=== PATIENT | male | born 1970 | race Caucasian/White ===

== ENCOUNTER 2016-07-14 12:35 | Emergency (ER) | payer MEDICARE, MEDICAID ==
[2016-07-14] MEDS ORDERED: ONDANSETRON 4 MG TAB.RAPDIS PO ONE (12:55)
[2016-07-14] MEDS ORDERED: ASPIRIN 81 MG TABLET, CHEWABLE PO ONE (12:55)
--- NOTE | 2016-07-14 12:58 | ER Document Report ---
ED Medical Screen (RME) - General Stated Complaint: CHEST PAIN,NAUSEA Mode of Arrival: Ambulatory Information source: Patient Notes: Patient presents complaining of chest pain that started an hour and a half ago. Patient reports nausea and vomiting for the past 2 days. Pain is midsternal. No shortness of breath. hx: merna fundoplication, A. fib, cardiac Catheterization I have greeted and performed a rapid initial assessment of this patient. A comprehensive ED assessment and evaluation of the patient, analysis of test results and completion of the medical decision making process will be conducted by additional ED providers. - Related Data Allergies/Adverse Reactions: ketorolac tromethamine [From Toradol] Allergy (Verified 07/14/16 12:54) meperidine HCl [From Demerol] Allergy (Verified 07/14/16 12:54) metoclopramide HCl [From Reglan] Allergy (Verified 07/14/16 12:54) morphine [Morphine] Allergy (Verified 07/14/16 12:54) prochlorperazine edisylate [From Compazine] Allergy (Verified 07/14/16 12:54) promethazine HCl [From Phenergan] Allergy (Verified 07/14/16 12:54) rosuvastatin calcium [From Crestor] Adverse Reaction (Unknown, Verified 12:54) elevated lft's Past Medical History - Past Medical History Cardiac Medical History: Reports: Hx Atrial Fibrillation, Hx Hypercholesterolemia, Hx Hypertension Pulmonary Medical History: Denies: Hx Tuberculosis GI Medical History: Reports: Hx Gastroesophageal Reflux Disease Psychiatric Medical History: Reports: Hx Anxiety, Hx Bipolar Disorder, Hx Depression Past Surgical History: Reports: Hx Cardiac Catheterization - x3, all have been normal, Hx Oral Surgery, Hx Testicular Surgery - L testicle removal r/t varicose veins/tumor, Hx Tonsillectomy - Immunizations Hx Diphtheria, Pertussis, Tetanus Vaccination: No Physical Exam - Vital signs Vitals: Temp Pulse Resp BP Pulse Ox 98.3 F 88 18 139/90 H 96 07/14/16 12:50 07/14/16 12:50 07/14/16 12:50 07/14/16 12:50 07/14/16 12:50 - Cardiovascular Rhythm: Regular Heart sounds: S1 appreciated, S2 appreciated Murmur: No Course - Vital Signs Vital signs: Temp Pulse Resp BP Pulse Ox 98.3 F 88 18 139/90 H 96 07/14/16 12:50 07/14/16 12:50 07/14/16 12:50 07/14/16 12:50 07/14/16 12:50
[2016-07-14 13:39] LABS: APPEARANCE,URINE CLEAR; BILIRUBIN,URINE NEGATIVE (NEGATIVE); GLUCOSE, URINE NEGATIVE (NEGATIVE); KETONES,URINE TRACE mg/dL (NEGATIVE); LEUKOCYTE ESTERASE,URINE NEGATIVE (NEGATIVE); NITRITE,URINE NEGATIVE (NEGATIVE); PROTEIN,URINE NEGATIVE (NEGATIVE); URINE SPECIFIC GRAVITY 1.023; UROBILINOGEN,URINE NEGATIVE mg/dL (<2.0)
[2016-07-14 13:41] LABS: ABSOLUTE BASOPHILS # (AUTO) 0.1 10^3/uL (0.0-0.2); ABSOLUTE EOSINOPHILS # (AUTO) 0.1 10^3/uL (0.0-0.6); ABSOLUTE LYMPHOCYTES (AUTO) 2.3 10^3/uL (0.5-4.7); ABSOLUTE NEUT (AUTO) 8.9 10^3/uL (1.7-8.2); BASOPHILS % (AUTO) 0.7 % (0-2); EOSINOPHILS % (AUTO) 0.8 % (0-6); HEMATOCRIT 45.4 % (37.9-51.0); HEMOGLOBIN 15.1 g/dL (13.5-17.0); HGB HCT DIFFERENCE -0.1; LYMPHOCYTES % (AUTO) 18.6 % (13-45); MEAN CORPUSCULAR HEMOGLOBIN 28.4 pg (27.0-33.4); MEAN CORPUSCULAR HGB CONC 33.2 g/dL (32.0-36.0); MEAN CORPUSCULAR VOLUME 86 fl (80-97); MONOCYTES % (AUTO) 7.7 % (3-13); RED BLOOD COUNT 5.32 10^6/uL (4.35-5.55); RED CELL DISTRIBUTION WIDTH 14.7 % (11.5-14.0); SEGMENTED NEUTROPHILS % (AUTO) 72.2 % (42-78); WHITE BLOOD COUNT 12.4 10^3/uL (4.0-10.5)
[2016-07-14 13:55] LABS: ALANINE AMINOTRANSFERASE 86 U/L (21-72); ALBUMIN 4.4 g/dL (3.5-5.0); ALKALINE PHOSPHATASE 41 U/L (38-126); ANION GAP 13 (5-19); ASPARTATE AMINO TRANSFERASE 40 U/L (17-59); BILIRUBIN,TOTAL 0.7 mg/dL (0.2-1.3); BLOOD UREA NITROGEN 14 mg/dL (7-20); CALCIUM 10.1 mg/dL (8.4-10.2); CARBON DIOXIDE 24 mmol/L (22-30); CHLORIDE 102 mmol/L (98-107); CREATINE KINASE 415 U/L (55-170); CREATININE RESULT 1.03 mg/dL (0.52-1.25); GLUCOSE 102 mg/dL (75-110); LIPASE 107.5 U/L (23-300); POTASSIUM 4.2 mmol/L (3.6-5.0); SODIUM 139.1 mmol/L (137-145); TOTAL PROTEIN 7.8 g/dL (6.3-8.2)
[2016-07-14 13:55] LABS: URINE BARBITURATES SCREEN NEGATIVE; URINE METHADONE SCREEN NEGATIVE; URINE OPIATES LOW NEGATIVE; URINE PHENCYCLIDINE SCREEN NEGATIVE
[2016-07-14 14:10] LABS: TROPONIN I < 0.012 ng/mL
[2016-07-14] MEDS ORDERED: ONDANSETRON HCL INJ/PF 4 MG/2 ML SDV IV ONE (15:56)
--- NOTE | 2016-07-14 15:59 | ER Document Report ---
ED General - General Chief Complaint: Chest Pain > 30 Stated Complaint: CHEST PAIN,NAUSEA Mode of Arrival: Ambulatory Information source: Patient Notes: 45-year-old male history of Carrillo eugenio who states that he has had 4 previous cardiac catheterizations which were all negative last 8 years ago presents with complaints of his heart racing. Patient notes that he's been vomiting for the past 2 days has not been able to hold on his Cardizem, her rate was noted to be 130s, he states that he took his Cardizem which brought his heart rate down to the 80s. Patient denies any current chest pain shortness breath difficult to breathing. He does note pain in the epigastric abdominal region. He does note that he has a history of esophageal erosion, and has not been taking his Nexium. Patient denies any blood in his vomit or stool TRAVEL OUTSIDE OF THE [place] IN LAST 30 DAYS: No - HPI Onset: Other - 2 day duration Onset/Duration: Persistent Quality of pain: Burning Severity: Mild Pain Level: 1 Associated symptoms: Nausea, Vomiting Exacerbated by: Denies Relieved by: Denies Similar symptoms previously: Yes Recently seen / treated by doctor: Yes - Related Data Allergies/Adverse Reactions: ketorolac tromethamine [From Toradol] Allergy (Verified 07/14/16 12:54) meperidine HCl [From Demerol] Allergy (Verified 07/14/16 12:54) metoclopramide HCl [From Reglan] Allergy (Verified 07/14/16 12:54) morphine [Morphine] Allergy (Verified 07/14/16 12:54) prochlorperazine edisylate [From Compazine] Allergy (Verified 07/14/16 12:54) promethazine HCl [From Phenergan] Allergy (Verified 07/14/16 12:54) rosuvastatin calcium [From Crestor] Adverse Reaction (Unknown, Verified 12:54) elevated lft's Past Medical History - General Information source: Patient - Social History Smoking Status: Never Smoker Cigarette use (# per day): No Chew tobacco use (# tins/day): No Smoking Education Provided: No Frequency of alcohol use: None Drug Abuse: None Family History: Reviewed & Not Pertinent Patient has suicidal ideation: No Patient has homicidal ideation: No - Past Medical History Cardiac Medical History: Reports: Hx Atrial Fibrillation, Hx Hypercholesterolemia, Hx Hypertension Pulmonary Medical History: Denies: Hx Tuberculosis Renal/ Medical History: Denies: Hx Peritoneal Dialysis GI Medical History: Reports: Hx Gastroesophageal Reflux Disease Psychiatric Medical History: Reports: Hx Anxiety, Hx Bipolar Disorder, Hx Depression Past Surgical History: Reports: Hx Cardiac Catheterization - x3, all have been normal, Hx Oral Surgery, Hx Testicular Surgery - L testicle removal r/t varicose veins/tumor, Hx Tonsillectomy - Immunizations Hx Diphtheria, Pertussis, Tetanus Vaccination: No Hx Pneumococcal Vaccination: 05/24/10 Review of Systems - Review of Systems Notes: REVIEW OF SYSTEMS: CONSTITUTIONAL : Denies fever, chills, or sweats. Denies recent illness. EENT: Denies eye, ear, throat, or mouth pain or symptoms. Denies nasal or sinus congestion or discharge. Denies throat, tongue, or mouth swelling or difficulty swallowing. CARDIOVASCULAR: Admits to heart racing RESPIRATORY: Denies cough, cold, or chest congestion. Denies shortness of breath, difficulty breathing, or wheezing. GASTROINTESTINAL: Admits epigastric abdominal pain Denies black, tarry stools. Denies constipation. GENITOURINARY: Denies difficulty urinating, painful urination, burning, frequency, blood in urine, or discharge. MUSCULOSKELETAL: Denies back or neck pain or stiffness. Denies joint pain or swelling. SKIN: Denies rash, lesions or sores. HEMATOLOGIC : Denies easy bruising or bleeding. LYMPHATIC: Denies swollen, enlarged glands. NEUROLOGICAL: Denies confusion or altered mental status. Denies passing out or loss of consciousness. Denies dizziness or lightheadedness. Denies headache. Denies weakness or paralysis or loss of use of either side. Denies problems with gait or speech. Denies sensory loss, numbness, or tingling. Denies seizures. PSYCHIATRIC: Denies anxiety or stress. Denies depression, suicidal ideation, or homicidal ideation. ALL OTHER SYSTEMS REVIEWED AND NEGATIVE. Dictation was performed using [employer] recognition software PHYSICAL EXAMINATION: GENERAL: Well-appearing, well-nourished and in no acute distress. HEAD: Atraumatic, normocephalic. EYES: Pupils equal round and reactive to light, extraocular movements intact, sclera anicteric, conjunctiva are normal. ENT: Nares patent, oropharynx clear without exudates. Moist mucous membranes. NECK: Normal range of motion, supple without lymphadenopathy LUNGS: Breath sounds clear to auscultation bilaterally and equal. No wheezes rales or rhonchi. HEART: Regular rate and rhythm without murmurs ABDOMEN: Soft, nontender, nondistended abdomen. No guarding, no rebound. No masses appreciated. Musculoskeletal: Normal range of motion, no pitting or edema. No cyanosis. NEUROLOGICAL: Cranial nerves grossly intact. Normal speech, normal gait. Normal sensory, motor exams PSYCH: Normal mood, normal affect. SKIN: Warm, Dry, normal turgor, no rashes or lesions noted. Physical Exam - Vital signs Vitals: Temp Pulse Resp BP Pulse Ox 98.3 F 88 18 139/90 H 96 07/14/16 12:50 07/14/16 12:50 07/14/16 12:50 07/14/16 12:50 07/14/16 12:50 Course - Re-evaluation Re-evalutation: 07/14/16 15:58 Physical examination notes no significant abnormality, patient is at rest in no distress. CT of the abdomen to rule out an aneurysm has been ordered given family history of aneurysms but otherwise patient looks well in no distress. He does not appear to have any pulmonary emboli, his heart rate is controlled. 07/14/16 17:25 CT noted no acute abnormality, patient was made aware of findings and already knows these. Patient will be discharged home on Nexium is otherwise stable for discharge After performing a Medical Screening Examination, I estimate there is LOW risk for ACUTE APPENDICITIS, BOWEL OBSTRUCTION, ACUTE CHOLECYSTITIS, PERFORATED DIVERTICULITIS, INCARCERATED HERNIA, PANCREATITIS, or PERFORATED ULCER, thus I consider the discharge disposition reasonable. Also, there is no evidence or peritonitis, sepsis, or toxicity. The patient and I have discussed the diagnosis and risks, and we agree with discharging home with close follow-up with the understanding that symptoms and presentations can change. We also discussed returning to the Emergency Department immediately if new or worsening symptoms occur. We have discussed the symptoms which are most concerning (e.g., bloody stool, fever, changing or worsening pain, intractable vomiting - standard verbal up date) that necessitate immediate return. - Vital Signs Vital signs: Temp Pulse Resp BP Pulse Ox 98.3 F 88 18 139/90 H 96 07/14/16 12:50 07/14/16 12:50 07/14/16 12:50 07/14/16 12:50 07/14/16 12:50 - Laboratory Result Diagrams: 07/14/16 13:00 07/14/16 13:00 Laboratory results interpreted by me: 07/14/16 07/14/16 07/14/16 13:00 13:00 13:05 WBC 12.4 H RDW 14.7 H Absolute Neutrophils 8.9 H ALT 86 H Creatine Kinase 415 H Urine Ketones TRACE H Urine Ascorbic Acid 40 H - Diagnostic Test Radiology reviewed: Image reviewed, Reports reviewed Discharge - Discharge Clinical Impression: GERD (gastroesophageal reflux disease) Qualifiers: Esophagitis presence: with esophagitis Qualified Code(s): K21.0 - Gastro- esophageal reflux disease with esophagitis Abdominal pain Qualifiers: Abdominal location: epigastric Qualified Code(s): R10.13 - Epigastric pain Condition: Stable Disposition: HOME, SELF-CARE Additional Instructions: Follow up with your physician tomorrow for further care or return to the ED IMMEDIATELY if symptoms worsen or new concerns occur Prescriptions: Esomeprazole Mag Trihydrate [Nexium] 40 mg PO DAILY #30 capsule.
[2016-07-14 17:37] VITALS: BP 105/74
--- NOTE | 2016-07-14 21:59 | EKG REPORT ---
SEVERITY:- BORDERLINE ECG - SINUS RHYTHM BORDERLINE LEFT AXIS DEVIATION BORDERLINE T ABNORMALITIES, ANT-LAT LEADS : Confirmed by: Palma Cruz MD 14-Jul-2016 21:58:56
== END 2016-07-14 17:36 | disposition home or self-care (01) ==
LOC: ER 12:35
DX: K21.0 Gastro-esophageal reflux disease with esophagitis (principal); Z91.14 Patient's other noncompliance with medication regimen; R10.13 Epigastric pain; I48.91 Unspecified atrial fibrillation; R00.0 Tachycardia, unspecified; I10 Essential (primary) hypertension; R11.2 Nausea with vomiting, unspecified; Z79.899 Other long term (current) drug therapy; Z88.8 Allergy status to other drugs, medicaments and biological substances; Z88.5 Allergy status to narcotic agent
CPT/HCPCS: 93005; 99285; 96374; 36415; 82553; 82550; 83690; 85025; 80053; 81001; 84484; 80307; 71020; 74177; 93010; A9270 ×2; J2405; S0119

== ENCOUNTER 2016-07-20 13:01 | Emergency (ER) | payer MEDICARE, MEDICAID ==
[2016-07-20] MEDS ORDERED: ASPIRIN 81 MG TABLET, CHEWABLE PO ONE (13:22)
--- NOTE | 2016-07-20 13:25 | ER Document Report ---
ED Medical Screen (RME) - General Stated Complaint: CHEST PAIN Mode of Arrival: Ambulatory Information source: Patient Notes: 45 y/o M presents to ED c/o left sided chest pain which began approximately 4 minutes ago. Reports associated lightheadedness and dizziness. Reports past cardiac hx. I have greeted and performed a rapid initial assessment of this patient. A comprehensive ED assessment and evaluation of the patient, analysis of test results and completion of the medical decision making process will be conducted by additional ED providers. TRAVEL OUTSIDE OF THE [place] IN LAST 30 DAYS: No - Related Data Allergies/Adverse Reactions: ketorolac tromethamine [From Toradol] Allergy (Verified 07/20/16 13:21) meperidine HCl [From Demerol] Allergy (Verified 07/20/16 13:21) metoclopramide HCl [From Reglan] Allergy (Verified 07/20/16 13:21) morphine [Morphine] Allergy (Verified 07/20/16 13:21) prochlorperazine edisylate [From Compazine] Allergy (Verified 07/20/16 13:21) promethazine HCl [From Phenergan] Allergy (Verified 07/20/16 13:21) rosuvastatin calcium [From Crestor] Adverse Reaction (Unknown, Verified 13:21) elevated lft's Past Medical History - Past Medical History Cardiac Medical History: Reports: Hx Atrial Fibrillation, Hx Hypercholesterolemia, Hx Hypertension Pulmonary Medical History: Denies: Hx Tuberculosis Renal/ Medical History: Denies: Hx Peritoneal Dialysis GI Medical History: Reports: Hx Gastroesophageal Reflux Disease Psychiatric Medical History: Reports: Hx Anxiety, Hx Bipolar Disorder, Hx Depression Past Surgical History: Reports: Hx Cardiac Catheterization - x3, all have been normal, Hx Oral Surgery, Hx Testicular Surgery - L testicle removal r/t varicose veins/tumor, Hx Tonsillectomy - Immunizations Hx Diphtheria, Pertussis, Tetanus Vaccination: No Physical Exam - Vital signs Vitals: Temp Pulse Resp BP Pulse Ox 98.0 F 59 L 18 123/82 97 07/20/16 13:19 07/20/16 13:19 07/20/16 13:19 07/20/16 13:19 07/20/16 13:19 - General General appearance: Appears well, Alert In distress: None - Respiratory Respiratory status: No respiratory distress - Cardiovascular Rhythm: Regular Pulses: Normal: Radial Normal capillary refill: Yes Course - Vital Signs Vital signs: Temp Pulse Resp BP Pulse Ox 98.0 F 59 L 18 123/82 97 07/20/16 13:19 07/20/16 13:19 07/20/16 13:19 07/20/16 13:19 07/20/16 13:19
--- NOTE | 2016-07-20 14:01 | ER Document Report ---
ED Cardiac - General Chief Complaint: Chest Pain Stated Complaint: CHEST PAIN Mode of Arrival: Ambulatory Information source: Patient Notes: Patient presents with left lower chest pain that started around lunchtime today while he was shopping. Patient complains of some mild dizziness. Patient describes pain as a dullness. Patient does report occasional cough but states it is mild. Patient denies any fever, nausea, vomiting, or dysuria. Patient does state he has a history of undiagnosed anxiety as well as OCD and is concerned that his anxiety may be having some effect on his symptoms today. TRAVEL OUTSIDE OF THE [place] IN LAST 30 DAYS: No - HPI Patient complains to provider of: Chest pain Was the onset of pain: Gradual Chest pain location: Under breast - Left side Quality of pain: Achy Pain level currently: 1 Cardiac risk factors: Hypertension, Dyslipidemia. denies: Hx GA Associated symptoms: Dizziness. denies: Abdominal pain, Fever/chills, Nausea/ vomiting Exacerbated by: Denies Relieved by: Nothing Similar symptoms previously: Yes Recently seen / treated by doctor: Yes - Related Data Allergies/Adverse Reactions: ketorolac tromethamine [From Toradol] Allergy (Verified 07/20/16 13:21) meperidine HCl [From Demerol] Allergy (Verified 07/20/16 13:21) metoclopramide HCl [From Reglan] Allergy (Verified 07/20/16 13:21) morphine [Morphine] Allergy (Verified 07/20/16 13:21) prochlorperazine edisylate [From Compazine] Allergy (Verified 07/20/16 13:21) promethazine HCl [From Phenergan] Allergy (Verified 07/20/16 13:21) rosuvastatin calcium [From Crestor] Adverse Reaction (Unknown, Verified 13:21) elevated lft's Past Medical History - General Information source: Patient - Social History Smoking Status: Never Smoker Chew tobacco use (# tins/day): No Frequency of alcohol use: None Drug Abuse: None Occupation: none Lives with: Family Family History: Reviewed & Not Pertinent Patient has suicidal ideation: No Patient has homicidal ideation: No - Past Medical History Cardiac Medical History: Reports: Hx Atrial Fibrillation, Hx Hypercholesterolemia, Hx Hypertension Denies: Hx DVT, Hx Heart Attack Pulmonary Medical History: Denies: Hx Tuberculosis Renal/ Medical History: Denies: Hx Peritoneal Dialysis GI Medical History: Reports: Hx Gastroesophageal Reflux Disease Psychiatric Medical History: Reports: Hx Anxiety, Hx Bipolar Disorder, Hx Depression Past Surgical History: Reports: Hx Cardiac Catheterization - x3, all have been normal, Hx Oral Surgery, Hx Testicular Surgery - L testicle removal r/t varicose veins/tumor, Hx Tonsillectomy - Immunizations Hx Diphtheria, Pertussis, Tetanus Vaccination: No Hx Pneumococcal Vaccination: 05/24/10 Review of Systems - Review of Systems Constitutional: No symptoms reported. denies: Fever, Recent illness EENT: No symptoms reported Cardiovascular: Chest pain, Dizziness Respiratory: Cough. denies: Short of breath Gastrointestinal: No symptoms reported. denies: Abdominal pain, Nausea, Vomiting Genitourinary: No symptoms reported Male Genitourinary: No symptoms reported Musculoskeletal: No symptoms reported Skin: No symptoms reported Hematologic/Lymphatic: No symptoms reported Neurological/Psychological: Anxiety Physical Exam - Vital signs Vitals: Temp Pulse Resp BP Pulse Ox 98.0 F 59 L 18 123/82 97 07/20/16 13:19 07/20/16 13:19 07/20/16 13:19 07/20/16 13:19 07/20/16 13:19 - General General appearance: Appears well, Alert In distress: None - HEENT Head: Normocephalic, Atraumatic Eyes: Normal Conjunctiva: Normal Nasal: Normal Mouth/Lips: Normal Neck: Normal, Supple. No: Lymphadenopathy - Respiratory Respiratory status: No respiratory distress Chest status: Nontender Breath sounds: Normal Chest palpation: Normal - Cardiovascular Rhythm: Bradycardia Heart sounds: S1 appreciated, S2 appreciated Murmur: No - Abdominal Inspection: Obese Distension: No distension Bowel sounds: Normal Tenderness: Nontender Organomegaly: No organomegaly - Back Back: Normal, Nontender. No: CVA tenderness - Extremities General upper extremity: Normal inspection, Normal ROM General lower extremity: Normal inspection, Normal ROM - Neurological Neuro grossly intact: Yes Cognition: Normal Orientation: AAOx4 [place] Coma Scale Eye Opening: Spontaneous [place] Coma Scale Verbal: Oriented [place] Coma Scale Motor: Obeys Commands [place] Coma Scale Total: 15 - Psychological Associated symptoms: Normal affect, Normal mood - Skin Skin Temperature: Warm Skin Moisture: Dry Skin Color: Normal Course - Re-evaluation Re-evalutation: 07/20/16 16:[address] Piramzadian regarding patient presentation and diagnostic evaluation. Agrees with plan to repeat troponin and suspects likely discharge once that test is resulted. Patient PERC negative. 07/20/16 18:29 Vital signs stable, patient's repeat EKG without any changes from his EKG from earlier today and prior visit. The patient has atypical chest pain as the patient's chest pain is not suggestive of pulmonary embolus, cardiac ischemia, aortic dissection, or other serious etiology. Given the extremely low risk of these diagnoses for the test in evaluation for these possibilities does not appear to be indicated at this time. Patient has been instructed to return if the symptoms worsen or change in any way. - Vital Signs Vital signs: Temp Pulse Resp BP Pulse Ox 98.0 F 51 L 15 115/73 93 07/20/16 13:19 07/20/16 16:03 07/20/16 16:03 07/20/16 16:03 07/20/16 16:03 - Laboratory Result Diagrams: 07/20/16 14:05 07/20/16 14:05 Laboratory results interpreted by me: 07/20/16 07/20/16 14:05 14:05 RDW 15.0 H Carbon Dioxide 21 L Calcium 10.8 H ALT 84 H Creatine Kinase 266 H Labs- Last Values WBC 9.3 10^3/uL (4.0-10.5) 07/20/16 14:05 RBC 5.06 10^6/uL (4.35-5.55) 07/20/16 14:05 Hgb 14.9 g/dL (13.5-17.0) 07/20/16 14:05 Hct 43.4 % (37.9-51.0) 07/20/16 14:05 MCV 86 fl (80-97) 07/20/16 14:05 MCH 29.4 pg (27.0-33.4) 07/20/16 14:05 MCHC 34.2 g/dL (32.0-36.0) 07/20/16 14:05 RDW 15.0 % (11.5-14.0) H 07/20/16 14:05 Plt Count 360 10^3/uL (150-450) 07/20/16 14:05 Seg Neutrophils % 56.8 % (42-78) 07/20/16 14:05 Lymphocytes % 31.1 % (13-45) 07/20/16 14:05 Monocytes % 8.8 % (3-13) 07/20/16 14:05 Eosinophils % 2.8 % (0-6) 07/20/16 14:05 Basophils % 0.5 % (0-2) 07/20/16 14:05 Absolute Neutrophils 5.3 10^3/uL (1.7-8.2) 07/20/16 14:05 Absolute Lymphocytes 2.9 10^3/uL (0.5-4.7) 07/20/16 14:05 Absolute Monocytes 0.8 10^3/uL (0.1-1.4) 07/20/16 14:05 Absolute Eosinophils 0.3 10^3/uL (0.0-0.6) 07/20/16 14:05 Absolute Basophils 0.0 10^3/uL (0.0-0.2) 07/20/16 14:05 Sodium 140.2 mmol/L (137-145) 07/20/16 14:05 Potassium 4.4 mmol/L (3.6-5.0) 07/20/16 14:05 Chloride 104 mmol/L (98-107) 07/20/16 14:05 Carbon Dioxide 21 mmol/L (22-30) L 07/20/16 14:05 Anion Gap 15 (5-19) 07/20/16 14:05 BUN 13 mg/dL (7-20) 07/20/16 14:05 Creatinine 0.99 mg/dL (0.52-1.25) 07/20/16 14:05 Est GFR ( Amer) > 60 (>60) 07/20/16 14:05 Est GFR (Non-Af Amer) > 60 (>60) 07/20/16 14:05 Glucose 106 mg/dL (75-110) 07/20/16 14:05 Calcium 10.8 mg/dL (8.4-10.2) H 07/20/16 14:05 Total Bilirubin 0.7 mg/dL (0.2-1.3) 07/20/16 14:05 Direct Bilirubin 0.0 mg/dL (0.0-0.3) 07/20/16 14:05 AST 43 U/L (17-59) 07/20/16 14:05 ALT 84 U/L (21-72) H 07/20/16 14:05 Alkaline Phosphatase 38 U/L (38-126) 07/20/16 14:05 Creatine Kinase 266 U/L (55-170) H 07/20/16 14:05 CK-MB (CK-2) 1.49 ng/mL (<4.55) 07/20/16 14:05 Troponin I < 0.012 ng/mL 07/20/16 17:30 Total Protein 7.5 g/dL (6.3-8.2) 07/20/16 14:05 Albumin 4.7 g/dL (3.5-5.0) 07/20/16 14:05 Lipase 212.3 U/L (23-300) 07/20/16 14:05 Urine Color YELLOW 07/20/16 16:05 Urine Appearance CLEAR 07/20/16 16:05 Urine pH 6.0 (5.0-9.0) 07/20/16 16:05 Ur Specific Gordon 1.013 07/20/16 16:05 Urine Protein NEGATIVE mg/dL (NEGATIVE) 07/20/16 16:05 Urine Glucose (UA) NEGATIVE mg/dL (NEGATIVE) 07/20/16 16:05 Urine Ketones NEGATIVE mg/dL (NEGATIVE) 07/20/16 16:05 Urine Blood NEGATIVE (NEGATIVE) 07/20/16 16:05 Urine Nitrite NEGATIVE (NEGATIVE) 07/20/16 16:05 Urine Bilirubin NEGATIVE (NEGATIVE) 07/20/16 16:05 Urine Urobilinogen NEGATIVE mg/dL (<2.0) 07/20/16 16:05 Ur Leukocyte Esterase NEGATIVE (NEGATIVE) 07/20/16 16:05 Urine WBC (Auto) 0 /HPF 07/20/16 16:05 Urine RBC (Auto) 0 /HPF 07/20/16 16:05 Urine Mucus (Auto) RARE /LPF 07/20/16 16:05 Urine Ascorbic Acid NEGATIVE (NEGATIVE) 07/20/16 16:05 Urine Opiates Screen NEGATIVE 07/20/16 16:05 Urine Methadone Screen NEGATIVE 07/20/16 16:05 Ur Barbiturates Screen NEGATIVE 07/20/16 16:05 Ur Phencyclidine Scrn NEGATIVE 07/20/16 16:05 Ur Amphetamines Screen NEGATIVE 07/20/16 16:05 U Benzodiazepines Scrn UNCONFIRMED POSITIVE 07/20/16 16:05 Urine Cocaine Screen NEGATIVE 07/20/16 16:05 U Marijuana (THC) Screen NEGATIVE 07/20/16 16:05 07/20/16 18:34 - Diagnostic Test Radiology reviewed: Reports reviewed - EKG Interpretation by Me EKG shows normal: Sinus rhythm Rate: Normal When compared to previous EKG there are: No significant change Discharge - Discharge Clinical Impression: Chest pain Qualifiers: Chest pain type: unspecified Qualified Code(s): R07.9 - Chest pain, unspecified Condition: Stable Disposition: HOME, SELF-CARE Instructions: Chest Pain of Unclear Cause ([facility]) Additional Instructions: Return immediately for any new or worsening symptoms Followup with your primary care provider, call tomorrow to make a followup appointment Referrals: AMANDO GALE MD [Primary Care Provider] - Follow up tomorrow
[2016-07-20 14:31] LABS: ABSOLUTE EOSINOPHILS # (AUTO) 0.3 10^3/uL (0.0-0.6); ABSOLUTE LYMPHOCYTES (AUTO) 2.9 10^3/uL (0.5-4.7); ABSOLUTE MONOCYTES (AUTO) 0.8 10^3/uL (0.1-1.4); ABSOLUTE NEUT (AUTO) 5.3 10^3/uL (1.7-8.2); BASOPHILS % (AUTO) 0.5 % (0-2); EOSINOPHILS % (AUTO) 2.8 % (0-6); HEMATOCRIT 43.4 % (37.9-51.0); HEMOGLOBIN 14.9 g/dL (13.5-17.0); HGB HCT DIFFERENCE 1.3; LYMPHOCYTES % (AUTO) 31.1 % (13-45); MEAN CORPUSCULAR HEMOGLOBIN 29.4 pg (27.0-33.4); MEAN CORPUSCULAR HGB CONC 34.2 g/dL (32.0-36.0); MEAN CORPUSCULAR VOLUME 86 fl (80-97); MONOCYTES % (AUTO) 8.8 % (3-13); RED BLOOD COUNT 5.06 10^6/uL (4.35-5.55); SEGMENTED NEUTROPHILS % (AUTO) 56.8 % (42-78); WHITE BLOOD COUNT 9.3 10^3/uL (4.0-10.5)
[2016-07-20 15:01] LABS: ALANINE AMINOTRANSFERASE 84 U/L (21-72); ALBUMIN 4.7 g/dL (3.5-5.0); ALKALINE PHOSPHATASE 38 U/L (38-126); ANION GAP 15 (5-19); ASPARTATE AMINO TRANSFERASE 43 U/L (17-59); BILIRUBIN,TOTAL 0.7 mg/dL (0.2-1.3); BLOOD UREA NITROGEN 13 mg/dL (7-20); CALCIUM 10.8 mg/dL (8.4-10.2); CARBON DIOXIDE 21 mmol/L (22-30); CHLORIDE 104 mmol/L (98-107); CREATINE KINASE 266 U/L (55-170); CREATININE RESULT 0.99 mg/dL (0.52-1.25); GLUCOSE 106 mg/dL (75-110); LIPASE 212.3 U/L (23-300); POTASSIUM 4.4 mmol/L (3.6-5.0); SODIUM 140.2 mmol/L (137-145); TOTAL PROTEIN 7.5 g/dL (6.3-8.2)
[2016-07-20 15:13] LABS: CREATINE KINASE MB 1.49 ng/mL (<4.55)
[2016-07-20 15:17] LABS: TROPONIN I < 0.012 ng/mL
[2016-07-20 17:09] LABS: APPEARANCE,URINE CLEAR; BILIRUBIN,URINE NEGATIVE (NEGATIVE); GLUCOSE, URINE NEGATIVE (NEGATIVE); KETONES,URINE NEGATIVE (NEGATIVE); LEUKOCYTE ESTERASE,URINE NEGATIVE (NEGATIVE); NITRITE,URINE NEGATIVE (NEGATIVE); PROTEIN,URINE NEGATIVE (NEGATIVE); URINE SPECIFIC GRAVITY 1.013; UROBILINOGEN,URINE NEGATIVE mg/dL (<2.0)
[2016-07-20 17:23] LABS: URINE BARBITURATES SCREEN NEGATIVE; URINE METHADONE SCREEN NEGATIVE; URINE OPIATES LOW NEGATIVE; URINE PHENCYCLIDINE SCREEN NEGATIVE
[2016-07-20 18:35] VITALS: BP 125/81
--- NOTE | 2016-07-20 21:01 | EKG REPORT ---
SEVERITY:- BORDERLINE ECG - SINUS RHYTHM BORDERLINE LEFT AXIS DEVIATION BORDERLINE T WAVE ABNORMALITIES : Confirmed by: Clifford Fields MD 20-Jul-2016 21:01:23
--- NOTE | 2016-07-20 21:01 | EKG REPORT ---
SEVERITY:- ABNORMAL ECG - SINUS BRADYCARDIA LEFT VENTRICULAR HYPERTROPHY BORDERLINE T ABNORMALITIES, INFERIOR LEADS : Confirmed by: Clifford Fields MD 20-Jul-2016 21:01:03
== END 2016-07-20 18:40 | disposition home or self-care (01) ==
LOC: ER 13:01
DX: R07.9 Chest pain, unspecified (principal); R42 Dizziness and giddiness; F41.9 Anxiety disorder, unspecified
CPT/HCPCS: 36415; 71020; 80053; 80307; 81001; 82550; 82553; 83690; 84484; 85025; 93005; 93010; 99285